=== PATIENT | male | born 1980 | race Caucasian/White ===

== ENCOUNTER 2019-11-18 11:38 | Emergency (ER) | payer MEDICAID ==
[2019-11-18] MEDS ORDERED: TAMSULOSIN HCL 0.4 MG CAP.SR.24H PO ONE (11:55)
--- NOTE | 2019-11-18 11:55 | ER Document Report ---
ED Medical Screen (RME) - General Chief Complaint: Abdominal Pain Stated Complaint: ABDOMINAL PAIN Time Seen by Provider: 11/18/19 11:44 Primary Care Provider: BARBARA MUÑOZ [Provider Group] - Follow up as needed Mode of Arrival: Medic Information source: Patient Notes: 39-year-old male presented to ED for complaint of bladder pain and abdominal pain. He states he was diagnosed with multiple kidney stones with one very large one on the right a week ago. He states he is also diagnosed with a UTI. He states he has been taking his Levaquin and ibuprofen but the pain has increased in his bladder area. 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 States he does smoke a pack a day has not drank since his birthday and does not use any illicit drugs. I have ordered a kidney ultrasound urine blood work and will order a Flomax p.o. now. I have greeted and performed a rapid initial assessment of this patient. A comprehensive ED assessment and evaluation of the patient, analysis of test results and completion of medical decision making process will be conducted by a n additional ED providers. - Related Data Allergies/Adverse Reactions: No Known Allergies Allergy (Unverified 11/18/19 11:54) Physical Exam - Vital signs Vitals: Temp Pulse Resp BP Pulse Ox 98.3 F 81 20 127/86 H 99 11/18/19 11:53 11/18/19 11:53 11/18/19 11:53 11/18/19 11:53 11/18/19 11:53 Course - Vital Signs Vital signs: Temp Pulse Resp BP Pulse Ox 98.2 F 72 18 129/80 H 98 11/18/19 15:42 11/18/19 15:42 11/18/19 15:42 11/18/19 15:42 11/18/19 15:42 - Laboratory Result Diagrams: 11/18/19 12:22 11/18/19 12:22 Laboratory results interpreted by me: 11/18/19 11/18/19 11:45 12:22 Glucose 114 H Total Protein 8.4 H Albumin 5.3 H Urine Ketones 20 H Urine Blood SMALL H Ur Leukocyte Esterase TRACE H Doctor's Discharge - Discharge Clinical Impression: Groin pain, Kidney stone Condition: Stable Disposition: HOME, SELF-CARE Additional Instructions: You were seen today in the emergency department for groin pain related to your kidney stones. Please continue your antibiotics as prescribed. Continue the ibuprofen. Start Flomax to help with passing of your stones. Follow-up with urology in regards to this visit. Prescriptions: Tamsulosin HCl [Flomax 0.4 mg Cap.sr] 0.4 mg PO DAILY #6 cap.sr.24h Oxycodone HCl/Acetaminophen [Percocet 5-325 mg Tablet] 1 tab PO ASDIR PRN #15 tab PRN Reason: Forms: Return to Work Referrals: [facility] [Provider Group] - Follow up as needed
[2019-11-18 12:28] LABS: ABSOLUTE LYMPHOCYTES (AUTO) 1.5 10^3/uL (0.5-4.7); ABSOLUTE MONOCYTES (AUTO) 0.8 10^3/uL (0.1-1.4); ABSOLUTE NEUT (AUTO) 6.9 10^3/uL (1.7-8.2); BASOPHILS % (AUTO) 0.5 % (0-2); EOSINOPHILS % (AUTO) 0.3 % (0-6); HEMATOCRIT 43.4 % (37.9-51.0); HEMOGLOBIN 15.2 g/dL (13.5-17.0); LYMPHOCYTES % (AUTO) 16.5 % (13-45); MEAN CORPUSCULAR HEMOGLOBIN 30.3 pg (27.0-33.4); MEAN CORPUSCULAR HGB CONC 35.1 g/dL (32.0-36.0); MEAN CORPUSCULAR VOLUME 86 fl (80-97); MONOCYTES % (AUTO) 8.1 % (3-13); PLATELET COUNT 233 10^3/uL (150-450); RED BLOOD COUNT 5.02 10^6/uL (4.35-5.55); RED CELL DISTRIBUTION WIDTH 13.9 % (11.5-14.0); SEGMENTED NEUTROPHILS % (AUTO) 74.6 % (42-78); TOTAL CELLS COUNTED % (AUTO) 100 %; WHITE BLOOD COUNT 9.3 10^3/uL (4.0-10.5)
[2019-11-18 12:28] LABS: APPEARANCE,URINE CLEAR; BILIRUBIN,URINE NEGATIVE (NEGATIVE); COLOR,URINE STRAW; GLUCOSE, URINE NEGATIVE (NEGATIVE); KETONES,URINE 20 mg/dL (NEGATIVE); LEUKOCYTE ESTERASE,URINE TRACE (NEGATIVE); NITRITE,URINE NEGATIVE (NEGATIVE); PROTEIN,URINE NEGATIVE (NEGATIVE); URINE SPECIFIC GRAVITY 1.004; UROBILINOGEN,URINE NEGATIVE mg/dL (<2.0)
[2019-11-18 12:46] LABS: ALBUMIN 5.3 g/dL (3.5-5.0); ALKALINE PHOSPHATASE 70 U/L (38-126); ANION GAP 13 (5-19); ASPARTATE AMINO TRANSFERASE 29 U/L (17-59); BILIRUBIN,DIRECT 0.3 mg/dL (0.0-0.4); BILIRUBIN,TOTAL 1.1 mg/dL (0.2-1.3); BLOOD UREA NITROGEN 15 mg/dL (7-20); CALCIUM 10.1 mg/dL (8.4-10.2); CARBON DIOXIDE 23 mmol/L (22-30); CHLORIDE 103 mmol/L (98-107); GLUCOSE 114 mg/dL (75-110); POTASSIUM 4.1 mmol/L (3.6-5.0); TOTAL PROTEIN 8.4 g/dL (6.3-8.2)
--- NOTE | 2019-11-18 13:40 | RADIOLOGY REPORT (SQ) ---
EXAM DESCRIPTION: U/S RETROPERITON (RENAL/AORTA) IMAGES COMPLETED DATE/TIME: 11/18/2019 1:27 pm REASON FOR STUDY: right kidney stone a week ago pain bladder COMPARISON: None. TECHNIQUE: Dynamic and static grayscale images acquired of the kidneys and bladder and recorded on P ACS. Additional selected color Doppler and spectral images recorded. LIMITATIONS: None. FINDINGS: RIGHT KIDNEY: Normal size. Normal echogenicity. No solid or suspicious masses. No hydronep hrosis. No calcifications. LEFT KIDNEY: Normal size. Normal echogenicity. No solid or suspicious masses. No hydronephrosis. No calcifications. BLADDER: Empty, patient voided just prior to the study. OTHER FINDINGS: No other significant finding. IMPRESSION: Normal appearance of the kidneys. Bladder not seen, patient postvoid at the time of sca nning. TECHNICAL DOCUMENTATION: JOB ID: [id number] 2010 [employer]- All Rights Reserved Reading location - IP/workstation name: [email or web address]
--- NOTE | 2019-11-18 13:42 | RADIOLOGY REPORT (SQ) ---
EXAM DESCRIPTION: U/S SCROTUM W/DOPPLER IMAGES COMPLETED DATE/TIME: 11/18/2019 1:27 pm REASON FOR STUDY: testicular pain COMPARISON: None. TECHNIQUE: Static and realtime archibald scale imaging of the scrotum and testes. Selected color Doppler and spectral images recorded to document blood flow. LIMITATIONS: None. FINDINGS: RIGHT: TESTICLE: Normal size. Normal echotexture. Normal blood flow. No mass. EPIDIDYMIS: Normal. HYDROCELE OR VARICOCELE: No. HERNIA OR EXTRA-TESTICULAR MASS: No. OTHER: No other significant finding. LEFT: TESTICLE: Normal size. Normal echotexture. Normal blood flow. No mass. EPIDIDYMIS: Normal. HYDROCELE OR VARICOCELE: No. HERNIA OR EXTRA-TESTICULAR MASS: No. OTHER: No other significant finding. IMPRESSION: NORMAL SCROTAL ULTRASOUND. NO EVIDENCE OF TESTICULAR MASS OR TORSION. TECHNICAL DOCUMENTATION: JOB ID: [id number] [employer]- All Rights Reserved Reading location - IP/workstation name: [email or web address]
[2019-11-18] MEDS ORDERED: NORMAL SALINE 1000 ML 1,000 ML IV ONE (13:58)
--- NOTE | 2019-11-18 15:03 | ER Document Report ---
ED GI/ <LUIS MIGUEL BONILLA - Last Filed: 11/19/19 09:21> - General Mode of Arrival: Medic <MAEAGN VILLANUEVA - Last Filed: 11/19/19 10:08> - General Chief Complaint: Abdominal Pain Stated Complaint: ABDOMINAL PAIN Time Seen by Provider: 11/18/19 11:44 Primary Care Provider: BARBARA MUÑOZ [Provider Group] - Follow up as needed Notes: Patient is a 39-year-old male presents emergency department with a chief complaint of scrotal pain and bladder pain. Patient was diagnosed with kidney stones at [facility] a week ago. Patient was also seen at urgent care and was diagnosed with a urinary tract infection. They gave him Levaquin and ibuprofen. Patient states that he continues to have pain in his scrotal area on the left side. Patient states that he has been taking his medications as prescribed. He has not received Flomax, other than in triage. (MAEGAN VILLANUEVA) - Related Data Allergies/Adverse Reactions: No Known Allergies Allergy (Unverified 11/18/19 11:54) Past Medical History - General Information source: Patient - Social History Smoking Status: Current Every Day Smoker Family History: Reviewed & Not Pertinent <MAEGAN VILLANUEVA - Last Filed: 11/19/19 10:08> Review of Systems <MAEGAN VILLANUEVA - Last Filed: 11/19/19 10:08> - Review of Systems Notes: REVIEW OF SYSTEMS: CONSTITUTIONAL : Denies recent illness. Denies recent unintentional weight loss. Denies fever, chills, or sweats. EENT: Denies eye, ear, throat, or mouth pain, discharge, or symptoms. Denies nasal or sinus congestion. CARDIOVASCULAR: Denies chest pain. RESPIRATORY: Denies shortness of breath, cough, congestion, difficulty breathing, or wheezing. GASTROINTESTINAL: Denies nausea, vomiting, and diarrhea. Denies abdominal pain. Denies constipation. GENITOURINARY: See HPI. MUSCULOSKELETAL: Denies neck and back pain. Denies joint pain or swelling. SKIN: Denies rash, itchiness, or lesions HEMATOLOGIC : Denies easy bruising or bleeding. LYMPHATIC: Denies swollen, painful, enlarged glands. NEUROLOGICAL: Denies no numbness or tingling denies weakness. Denies headache. Denies altered mental status. Denies alteration in speech. PSYCHIATRIC: Denies stress, anxiety, alteration in sleep patterns, or depression. All other systems reviewed and negative. (MAEGAN VILLANUEVA) Physical Exam <RICHANABELMAEGAN M - Last Filed: 11/19/19 10:08> - Vital signs Vitals: Temp Pulse Resp BP Pulse Ox 98.3 F 81 20 127/86 H 99 11/18/19 11:53 11/18/19 11:53 11/18/19 11:53 11/18/19 11:53 11/18/19 11:53 - Notes Notes: PHYSICAL EXAMINATION: GENERAL: Appears well, healthy, well-nourished, no acute distress. HEAD: Normocephalic, atraumatic. EYES: PERRL, conjunctiva normal, all extraocular movements intact, sclera nonicteric ENT: Moist mucous membranes. NECK: Supple, no noticeable swelling, redness, rash. Normal range of motion. LUNGS: Equal breath sounds bilaterally and clear to auscultation. No wheezes rales or rhonchi. CARDIOVASCULAR: S1-S2, regular rate, regular rhythm. Radial pulses 2+, normal. ABDOMEN: Normoactive bowel sounds. Soft, Tender Left lower abdomen, no guarding, no rebound tenderness, and no masses palpated. EXTREMITIES: Normal strength and range of motion, no pitting or edema. No cyano sis. NEUROLOGICAL: Moves all extremities upon command. Strength 5/5 in all extremities. PSYCH: Normal mood, normal affect. SKIN: Warm, dry. No rash, lesions, ulcerations noted. Normal skin turgor. (MAEGAN VILLANUEVA) Course - Laboratory Result Diagrams: 11/18/19 12:22 11/18/19 12:22 <LUIS MIGUEL BONILLA - Last Filed: 11/19/19 09:21> - Laboratory Result Diagrams: 11/18/19 12:22 11/18/19 12:22 <MAEGAN VILLANUEVA - Last Filed: 11/19/19 10:08> - Re-evaluation Re-evalutation: 11/19/19 09:22 Patient called requesting that prescription be sent to the [facility] pharmacy as the [facility] is closed for the holiday weekend. Prescriptions to the [facility] were canceled and new prescriptions were written to the patient's pharmacy of choice. (LUIS MIGUEL BONILLA) 11/18/19 15:00 Hematology is unremarkable. Chemistries are also unremarkable, other than protein being elevated at 8.4 and albumin also being elevated at 5.3. I suspect patient is dehydrated. Patient will be sent home with Flomax, as he was not prescribed this medication when he was diagnosed with his kidney stones. Patient will continue Levaquin. Urine culture has been sent. Scrotal ultraso und and renal ultrasound are unremarkable. Patient most likely passed the stones already or they were not visualized because his bladder was empty. I have a low suspicion for any life-threatening etiology at this time. Follow-up precautions were given. Verbal discharge instructions were given to the patient. They verbalized understanding. They are stable for discharge. (MAEGAN VILLANUEVA) - Vital Signs Vital signs: Temp Pulse Resp BP Pulse Ox 98.2 F 72 18 129/80 H 98 11/18/19 15:42 11/18/19 15:42 11/18/19 15:42 11/18/19 15:42 11/18/19 15:42 - Laboratory Laboratory results interpreted by me: 11/18/19 11/18/19 11:45 12:22 Glucose 114 H Total Protein 8.4 H Albumin 5.3 H Urine Ketones 20 H Urine Blood SMALL H Ur Leukocyte Esterase TRACE H Discharge <LUIS MIGUEL BONILLA - Last Filed: 11/19/19 09:21> <MAEGAN VILLANUEVA - Last Filed: 11/19/19 10:08> - Discharge Clinical Impression: Kidney stone Groin pain Qualifiers: Laterality: left Qualified Code(s): R10.32 - Left lower quadrant pain Condition: Stable Disposition: HOME, SELF-CARE Additional Instructions: You were seen today in the emergency department for groin pain related to your kidney stones. Please continue your antibiotics as prescribed. Continue the ibuprofen. Start Flomax to help with passing of your stones. Follow-up with urology in regards to this visit. Prescriptions: Tamsulosin HCl [Flomax 0.4 mg Cap.sr] 0.4 mg PO DAILY #7 cap.sr.24h Oxycodone HCl/Acetaminophen [Percocet 5-325 mg Tablet] 1 tab PO ASDIR PRN #15 tablet PRN Reason: Forms: Return to Work Referrals: [facility] [Provider Group] - Follow up as needed
[2019-11-18] MEDS ORDERED: HYDROCODONE/ACETAMINOPHEN 5-325 MG TABLET PO ONE (15:11)
[2019-11-18 15:43] VITALS: BP 129/80
--- NOTE | 2019-11-18 18:21 | EKG REPORT ---
SEVERITY:- ABNORMAL ECG - SINUS RHYTHM LVH WITH SECONDARY REPOLARIZATION ABNORMALITY : Confirmed by: Tom Marie MD 18-Nov-2019 18:20:57
== END 2019-11-18 15:42 | disposition home or self-care (01) ==
LOC: ER 11:38
DX: N20.0 Calculus of kidney (principal); N39.0 Urinary tract infection, site not specified; R10.32 Left lower quadrant pain; F17.200 Nicotine dependence, unspecified, uncomplicated
CPT/HCPCS: 93005; 99285; 96360; 36415; 87086; 85025; 80053; 81001; 76770; 76870; 93976; 93010; J3490; J7030